=== PATIENT | male | born 2000 | race Asian ===

== ENCOUNTER 2022-10-09 21:24 | Inpatient (IN) | payer OTHER ==
[~2022-10-09] VITALS: Ht 167.6 cm; Wt 59.1 kg
[2022-10-10] MEDS ORDERED: LORazepam 1 MG TABLET PO ONE (01:30)
[2022-10-10] MEDS ORDERED: OLANZapine 5 MG TABLET PO ONE (01:30)
[2022-10-10 01:31] LABS: BASOPHILS % (AUTO) 0.2 % (0.0-2.0); EOSINOPHILS % (AUTO) 0.4 % (1.0-6.0); HEMATOCRIT 50.2 % (41-53); HEMOGLOBIN 16.8 g/dL (13.5-17.5); LYMPHOCYTES % (AUTO) 10.2 % (22.0-44.0); MEAN CORPUSCULAR HEMOGLOBIN 30.2 pg (26.0-34.0); MEAN CORPUSCULAR HGB CONC 33.5 G/dL (31.0-37.0); MEAN CORPUSCULAR VOLUME 90 fL (80-100); MONOCYTES # (AUTO) 0.9 K/uL (0.1-1.0); MONOCYTES % (AUTO) 8.8 % (2.0-9.0); NEUTROPHILS # (AUTO) 7.9 K/uL (1.8-7.7); NEUTROPHILS % (AUTO) 80.4 % (40.0-70.0); PLATELET COUNT (AUTO) 202 K/uL (150-450); RED BLOOD CELL COUNT(AUTO) 5.57 MIL/uL (4.50-5.90); RED CELL DISTRIBUTION WIDTH 14.1 % (11.5-14.5)
[2022-10-10 01:33] LABS: COVID AG,FIA SOURCE NASAL SWAB
[2022-10-10 01:41] LABS: ANION GAP 9 mmol/L (8-16); CALCIUM, TOTAL 9.8 mg/dL (8.8-10.5); CARBON DIOXIDE 28 mmol/L (22-29); CHLORIDE 101 mmol/L (98-107); CREATININE 1.04 mg/dL (0.60-1.30); GLOMERULAR FILTR. RATE CALC > 60 mL/min (>60); GLUCOSE,RANDOM 239 mg/dL (70-110); POTASSIUM 3.6 mmol/L (3.5-5.1); SODIUM SERUM 138 mmol/L (136-145); UREA NITROGEN, BLOOD 15 mg/dL (7-18)
[2022-10-10 01:44] LABS: AMPHET/METH SCREEN,URINE NEGATIVE (NEGATIVE); BARBITURATE SCREEN, URINE NEGATIVE (NEGATIVE); BENZODIAZEPINES SCREEN,URINE NEGATIVE (NEGATIVE); CANNABINOID SCREEN,URINE NEGATIVE (NEGATIVE); COCAINE SCREEN,URINE NEGATIVE (NEGATIVE); METHADONE SCREEN, URINE NEGATIVE (NEGATIVE); OPIATE SCREEN,URINE NEGATIVE (NEGATIVE); PHENCYCLIDINE SCREEN,URINE NEGATIVE (NEGATIVE)
[2022-10-10 01:47] LABS: ALANINE AMINOTRANSFERASE 25 U/L (12-78); ALBUMIN 4.8 g/dL (3.4-5.0); ALKALINE PHOSPHATASE 88 U/L (46-116); ASPARTATE AMINOTRANSFERASE 16 U/L (15-37); BILIRUBIN,TOTAL 0.9 mg/dL (0.1-1.0); TOTAL PROTEIN, SERUM 8.3 g/dL (6.4-8.2)
[2022-10-10] MEDS ORDERED: HALOPERIDOL 5 MG TABLET PO PRN (02:45)
[2022-10-10] MEDS ORDERED: LORazepam 2 MG TABLET PO PRN (02:45)
[2022-10-10 09:40] VITALS: BP 142/69
[2022-10-10] MEDS ORDERED: DOCUSATE SODIUM 100 MG CAPSULE PO PRN ×2 (14:15→15:45)
[2022-10-10] MEDS ORDERED: PETROLATUM,WHITE 28 GM JELLY TP PRN ×2 (14:15→15:45)
[2022-10-10] MEDS ORDERED: LOPERAMIDE HCL 2 MG CAPSULE PO PRN ×2 (14:15→15:45)
[2022-10-10] MEDS ORDERED: ALBUTEROL SULFATE HFA 90 MCG/PUFF 8 GM INHALER IH PRN ×2 (14:15→15:45)
[2022-10-10] MEDS ORDERED: MAG HYDROX/AL HYDROX/SIMETH ES 30 ML SUSPENSION UDCUP PO PRN ×2 (14:15→15:45)
[2022-10-10] MEDS ORDERED: ACETAMINOPHEN 325 MG TABLET PO PRN ×2 (14:15→15:45)
[2022-10-10] MEDS ORDERED: IBUPROFEN 400 MG TABLET PO PRN ×2 (14:15→15:45)
[2022-10-10] MEDS ORDERED: NICOTINE 14 MG/24 HOUR PATCH TD PRN ×2 (14:15→15:45)
[2022-10-10] MEDS ORDERED: ONDANSETRON HCL 4 MG TABLET PO PRN ×2 (14:15→15:45)
[2022-10-10] MEDS ORDERED: GuaiFENesin/D-METHORPHAN [SUGAR-FREE] 200-20MG/10 ML SYRUP UDCUP PO PRN ×2 (14:15→15:45)
[2022-10-10] MEDS ORDERED: MAGNESIUM HYDROXIDE SUSPENSION 30 ML UDCUP PO PRN ×2 (14:15→15:45)
[2022-10-10] MEDS ORDERED: CloNIDine HCL 0.1 MG TABLET PO PRN ×2 (14:15→15:45)
[2022-10-10] MEDS ORDERED: INSULIN LISPRO 100 UNITS/ML SQ PRN (15:45)
[2022-10-10] MEDS ORDERED: DEXTROSE 50%-WATER 25 GM/50 ML SYRINGE IVP PRN (15:45)
[2022-10-10 16:46] LABS: GLUCOMETER DEV NAME(LOC) 3E.C; GLUCOSE,POINT OF CARE 69 MG/DL (70-110)
[2022-10-10 17:11] LABS: GLUCOMETER DEV NAME(LOC) 3E.C; GLUCOSE,POINT OF CARE 99 MG/DL (70-110)
[2022-10-11 06:11] LABS: GLUCOMETER DEV NAME(LOC) 3E.C; GLUCOSE,POINT OF CARE 117 MG/DL (70-110)
[2022-10-11 06:11] LABS: GLUCOMETER DEV NAME(LOC) 3E.C; GLUCOSE,POINT OF CARE 66 MG/DL (70-110)
[2022-10-11 07:46] LABS: BASOPHILS % (AUTO) 0.4 % (0.0-2.0); EOSINOPHILS % (AUTO) 2.8 % (1.0-6.0); HEMATOCRIT 50.6 % (41-53); LYMPHOCYTES # (AUTO) 1.1 K/uL (1.0-4.8); LYMPHOCYTES % (AUTO) 15.4 % (22.0-44.0); MEAN CORPUSCULAR HEMOGLOBIN 30.3 pg (26.0-34.0); MEAN CORPUSCULAR HGB CONC 33.5 G/dL (31.0-37.0); MEAN CORPUSCULAR VOLUME 90 fL (80-100); MONOCYTES # (AUTO) 0.7 K/uL (0.1-1.0); MONOCYTES % (AUTO) 9.4 % (2.0-9.0); NEUTROPHILS # (AUTO) 5.2 K/uL (1.8-7.7); PLATELET COUNT (AUTO) 169 K/uL (150-450); RED CELL DISTRIBUTION WIDTH 13.9 % (11.5-14.5)
[2022-10-11 08:04] LABS: HEMOGLOBIN A1C 4.8 % (3.8-5.6)
[2022-10-11 08:10] LABS: ALANINE AMINOTRANSFERASE 21 U/L (12-78); ALBUMIN 4.3 g/dL (3.4-5.0); ALKALINE PHOSPHATASE 78 U/L (46-116); ANION GAP 9 mmol/L (8-16); ASPARTATE AMINOTRANSFERASE 17 U/L (15-37); CALCIUM, TOTAL 9.4 mg/dL (8.8-10.5); CARBON DIOXIDE 29 mmol/L (22-29); CHLORIDE 104 mmol/L (98-107); CREATININE 0.98 mg/dL (0.60-1.30); GLOMERULAR FILTR. RATE CALC > 60 mL/min (>60); GLUCOSE,RANDOM 71 mg/dL (70-110); POTASSIUM 3.9 mmol/L (3.5-5.1); SODIUM SERUM 142 mmol/L (136-145); THYROID STIMULATING HORMONE 0.66 uIU/mL (0.36-3.74); TOTAL PROTEIN, SERUM 7.8 g/dL (6.4-8.2); UREA NITROGEN, BLOOD 14 mg/dL (7-18)
[2022-10-11 08:52] LABS: CHOLESTEROL 132 mg/dL (131-200); HDL CHOLESTEROL 44 mg/dL (40-60); LDL CHOL (CALC.) 76 mg/dL (0-130); TRIGLYCERIDES 58 mg/dL (15-150)
[2022-10-11 09:23] VITALS: BP 144/88
[2022-10-11] MEDS ORDERED: RisperiDONE 0.5 MG TABLET PO ONE (11:15)
[2022-10-11] MEDS: RisperiDONE 1 MG TABLET PO SCH (16:17)
[2022-10-11 16:26] LABS: GLUCOMETER DEV NAME(LOC) 3E.C; GLUCOSE,POINT OF CARE 104 MG/DL (70-110)
[2022-10-11 16:50] VITALS: BP 127/78
[2022-10-12 08:00] VITALS: BP 130/81
[2022-10-12] MEDS: RisperiDONE 1 MG TABLET PO SCH ×2 (08:22→16:04)
[2022-10-12 08:51] LABS: HEMOGLOBIN A1C 4.8 % (3.8-5.6)
[2022-10-12 08:56] LABS: ALANINE AMINOTRANSFERASE 22 U/L (12-78); ALBUMIN 4.5 g/dL (3.4-5.0); ALKALINE PHOSPHATASE 83 U/L (46-116); ANION GAP 8 mmol/L (8-16); ASPARTATE AMINOTRANSFERASE 17 U/L (15-37); BILIRUBIN,TOTAL 1.2 mg/dL (0.1-1.0); CALCIUM, TOTAL 9.7 mg/dL (8.8-10.5); CARBON DIOXIDE 29 mmol/L (22-29); CHLORIDE 104 mmol/L (98-107); CHOLESTEROL 134 mg/dL (131-200); CREATININE 0.81 mg/dL (0.60-1.30); GLOMERULAR FILTR. RATE CALC > 60 mL/min (>60); GLUCOSE,RANDOM 77 mg/dL (70-110); HDL CHOLESTEROL 45 mg/dL (40-60); LDL CHOL (CALC.) 77 mg/dL (0-130); POTASSIUM 4.3 mmol/L (3.5-5.1); SODIUM SERUM 141 mmol/L (136-145); THYROID STIMULATING HORMONE 1.38 uIU/mL (0.36-3.74); TOTAL PROTEIN, SERUM 8.1 g/dL (6.4-8.2); TRIGLYCERIDES 61 mg/dL (15-150); UREA NITROGEN, BLOOD 13 mg/dL (7-18)
[2022-10-12 16:00] VITALS: BP 120/88
[2022-10-12 21:24] VITALS: BP 124/75
[2022-10-13] MEDS: ZOLPIDEM TARTRATE 10 MG TABLET PO PRN ×2 (01:57→21:16)
[2022-10-13] MEDS: RisperiDONE 1 MG TABLET PO SCH ×2 (09:42→17:59)
[2022-10-13 11:32] VITALS: BP 129/83
[2022-10-13 16:56] VITALS: BP 124/71
[2022-10-13 20:43] VITALS: BP 123/90
[2022-10-13] MEDS: MELATONIN 5 MG TABLET PO SCH (20:54)
[2022-10-14] MEDS: RisperiDONE 1 MG TABLET PO SCH ×2 (08:24→17:40)
[2022-10-14 09:47] VITALS: BP 119/77
[2022-10-14 16:24] VITALS: BP 130/75
[2022-10-14] MEDS: MELATONIN 5 MG TABLET PO SCH (20:46)
[2022-10-14 20:54] VITALS: BP 133/78
[2022-10-14] MEDS: ZOLPIDEM TARTRATE 10 MG TABLET PO PRN (23:59)
[2022-10-15] MEDS: RisperiDONE 1 MG TABLET PO SCH ×2 (09:17→16:19)
[2022-10-15 09:43] VITALS: BP 111/73
[2022-10-15] MEDS ORDERED: RISP1TAB98 PO (10:38)
[2022-10-15] MEDS ORDERED: MELA5TAB40 PO (10:38)
[2022-10-15 16:52] VITALS: BP 114/67
== END 2022-10-15 17:31 | disposition home or self-care (01) | DRG 885 ==
LOC: EMS 21:26 → 3EI 10-10 06:00
PROVIDERS: ADMIT Psychiatry & Neurology Child & Adolescent Psychiatry; ATTEND Psychiatry & Neurology Child & Adolescent Psychiatry
DX: F25.0 Schizoaffective disorder, bipolar type (principal); E16.2 Hypoglycemia, unspecified; F19.10 Other psychoactive substance abuse, uncomplicated; K59.00 Constipation, unspecified; Z88.1 Allergy status to other antibiotic agents; Z20.822 Contact with and (suspected) exposure to COVID-19
CPT/HCPCS: 80053; 80061; 80307; 82962; 83036; 84443; 85025; 99285; G0480; Q9967